=== PATIENT | male | born 1970 | race African-American/Black ===

== ENCOUNTER 2017-06-03 22:12 | Emergency (ER) | payer SELFPAY ==
[2017-06-03] MEDS ORDERED: Ketorolac Tromethamine 30 MG/ML VIAL ONE (22:54)
== END 2017-06-03 23:20 | disposition home or self-care (01) ==
LOC: ERS 22:12
DX: J02.9 Acute pharyngitis, unspecified (principal); I10 Essential (primary) hypertension; Z87.891 Personal history of nicotine dependence
CPT/HCPCS: 87081; 87430; 96372; J1885

== ENCOUNTER 2017-06-28 22:42 | Emergency (ER) | payer SELFPAY ==
[2017-06-28] MEDS ORDERED: Lidocaine 1% w/Epinephrine 1:100K 20 ML VIAL ONE (23:22)
[2017-06-29] MEDS ORDERED: Bacitracin Zinc 1 Packet ONE (00:13)
== END 2017-06-29 00:20 | disposition home or self-care (01) ==
LOC: ERS 22:42 → EEVIPCON 22:42 → ERS 06-29 00:20
DX: S51.812A Laceration without foreign body of left forearm, initial encounter (principal); I10 Essential (primary) hypertension; Z87.891 Personal history of nicotine dependence; Z79.899 Other long term (current) drug therapy; X99.1XXA Assault by knife, initial encounter
CPT/HCPCS: 12001; J2001

== ENCOUNTER 2021-02-07 18:31 | Emergency (ER) | payer OTHER, SELFPAY | END 2021-02-07 19:53 | disposition home or self-care (01) | LOC: ERS 18:31 | DX: J06.9 Acute upper respiratory infection, unspecified (principal); I10 Essential (primary) hypertension; Z87.891 Personal history of nicotine dependence | CPT/HCPCS: 71045; 87081; 87430 ==

== ENCOUNTER 2021-04-28 08:39 | Emergency (ER) | payer OTHER ==
[2021-04-28] MEDS ORDERED: Ketorolac Tromethamine 30 MG/ML VIAL ONE (10:00)
== END 2021-04-28 10:16 | disposition home or self-care (01) ==
LOC: ERS 08:39
DX: S39.012A Strain of muscle, fascia and tendon of lower back, initial encounter (principal); I10 Essential (primary) hypertension; F17.210 Nicotine dependence, cigarettes, uncomplicated; X58.XXXA Exposure to other specified factors, initial encounter
CPT/HCPCS: 96372; 99283; J1885

== ENCOUNTER 2022-12-31 22:14 | Emergency (ER) | payer BC, OTHER | END 2022-12-31 22:42 | disposition left against medical advice (07) | LOC: ERS 22:14 | DX: Z53.21 Procedure and treatment not carried out due to patient leaving prior to being seen by health care provider (principal) ==